=== PATIENT | male | born 1965 | race Caucasian/White ===

== ENCOUNTER 2019-01-19 07:23 | Observation (INO) | payer OTHER ==
[~2019-01-19] VITALS: Ht 195.6 cm; Wt 140.6 kg
[~2019-01-19 07:23] MED LIST: ACETAMINOPHEN500 M1 PO; BENZONATATE100 MG PO; LEVAQUIN750 MG PO; PREDNISONE20 MG PO
--- NOTE | 2019-01-19 14:40 | NUR ---
REPORT CALL TO ME BY PATRICE JENSEN FROM THE ER. PT ARRIVED TO THE ROOM AT 1434. SAT ON 3L IS 94%. PT GETTING SETTLED IN AT THIS TIME.
--- NOTE | 2019-01-19 15:31 | NUR ---
PATIENT IN BED WATCHING TV. PATIENT'S DINNER ORDERED. CALL LIGHT WITHIN REACH. NO OTHER NEEDS AT THIS TIME
--- NOTE | 2019-01-19 15:54 | NUR ---
SAT WAS 94% AND O2 WAS DECREASED TO 2L VIA NC WITH HUMIDIFICATION. PT STATES HIS BREATHING FEELS OKAY AT THIS TIME. PT REMAINS ON PULSE OX.
--- NOTE | 2019-01-19 16:03 | NUR ---
SAT 92% AT THIS TIME ON 2L VIA NC.
--- NOTE | 2019-01-19 17:01 | NUR ---
PT DENIES CHEST TIGHTNESS OR SOB. SAT 93% ON 2L VIA NC. PT ENCOURAGED TO USE HIS IS WHICH HE IS DOING AT THIS TIME. PT HITTING 850 ON THE IS.
--- NOTE | 2019-01-19 17:24 | NUR ---
MED REC COMPLETE
--- NOTE | 2019-01-19 17:52 | NUR ---
Pt admitted to med/surg at 1434 this afternoon for influenza with hypoxia. He states that he has been sick at home since Friday. Sat on arrival to ER was 85% on RA with a HR of 115. Sat on 2l is now in the 90's and he now declines any chest tightness or SOB. Pt eating well and he denies pain. Pt given an IS and has been using it as directed. PT states he has no allergies and takes no home medications.
--- NOTE | 2019-01-19 18:15 | NUR ---
Pt states he has now coughed up a little sputum which I did not see. Pt's sat is now 95% on 2l via NC.
--- NOTE | 2019-01-19 18:36 | NUR ---
Pt walked to the BR with assist and his RR increased to 26 which decreased back down to his baseline within about a minute.
--- NOTE | 2019-01-19 19:16 | NUR ---
RECIEVED CHANGE OF SHIFT REPORT FROM CAMILA MAX. PATIENT ON DROPLET PRECAUTIONS. PATIENT RESTING AWAKE IN BED. WHITE BOARD UPDATED. 2L VIA NC, NO SIGNS OF RESPIRATORY DISTRESS. CPOX WNL. CALL LIGHT WITHIN REACH. NO MORE NEEDS AT THIS TIME.
--- NOTE | 2019-01-19 20:16 | EKG ---
[facility] [address] [facility] [place] [address] Signed Sinus tachycardia with fusion complexes Nonspecific ST abnormality Abnormal ECG When compared with ECG of 26-NOV-2016 11:42, fusion complexes are now present Confirmed by CHARMAINE OLIVARES MD ([id number]) on 01/19/2019 8:16:06 PM Electronically Signed By: CHARMAINE OLIVARES MD 01/19/192015 PATIENT NAME: MELECIO ALEXANDER Electrocardiogram DATE OF : 63 PHYSICIAN: CHARMAINE OLIVARES MD REPORT #: [id number] REPORT IS CONFIDENTIAL AND NOT TO BE RELEASED WITHOUT AUTHORIZATION
--- NOTE | 2019-01-19 21:46 | NUR ---
ASSESSMENT COMPLETE. PATIENT DENIES CHEST PAIN, SOB, OR DIFFICULTY BREATHING. 2L VIA NC, NO SIGNS OF RESPIRATORY DISTRESS. AUSCULTATED LUNG SOUNDS, DIMINISHED IN ALL BASES. PATIENT DEMONSTRATED UNDERSTANDING OF INCENTIVE SPIROMETER. THIS RN ENCOURAGED PO FLUIDS. WATER AT BEDSIDE. PATIENT BLEW NOSE AND SHOWED THIS RN CLEAR MUCUS THAT WAS PRODUCED. PATIENT REPORTS SORENESS "ALL OVER" AFTER EXPERIENCING COUGHING. PATIENT DENIES DIZZINESS WITH AMBULATION. CPOX WNL. CALL LIGHT WITHIN REACH. NO MORE NEEDS AT THIS TIME. DROPLET PRECAUTIONS.
--- NOTE | 2019-01-19 22:24 | NUR ---
NOTIFIED DR. OLIVARES OF PATIENT'S URINE OUTPUT OF [address] OLIVARES ORDERED 1L OF LR TO BE INFUSED OVER 3 HRS VIA TELEPHONE ORDER. CLARIFIED ORDER THROUGH READ BACK METHOD.
--- NOTE | 2019-01-19 22:55 | NUR ---
ROUNDED ON PATIENT TO ADMINISTER SCHEDULED IV FLUIDS PER JAN ORDER. LIGHTS IN ROOM TURNED OFF PER PATIENT REQUEST. CALL LIGHT WITHIN REACH. NO MORE NEEDS AT THIS TIME.
--- NOTE | 2019-01-19 23:31 | NUR ---
ROUNDED ON PATIENT RESTING IN BED WITH EYES CLOSED, RESPIRATORY RATE IS EVEN AND UNLABORED, CPOX WNL. CALL LIGHT WITHIN REACH.
--- NOTE | 2019-01-20 00:14 | NUR ---
ROUNDED ON PATIENT RESTING AWAKE IN BED. FRESH WATER BROUGHT TO PATIENT. PATIENT STATES HE WOULD LIKE SCHEDULED BREATHING TREATMENT, RESPIRATORY THERAPIST NOTIFIED. MICKEY SENL. CALL LIGHT WITHIN REACH. NO MORE NEEDS AT THIS TIME.
--- NOTE | 2019-01-20 01:56 | NUR ---
ASSESSMENT COMPLETE. PATIENT AMBULATED TO RESTROOM SBA, PATIENT DENIES DIZZINESS WITH AMBULATION. PATIENT EXHIBITIED A NON PRODUCTIVE COUGH. PATIENT VOIDED LIGHT YELLOW URINE. SCHEDULED MEDICATIONS ADMINISTERED PER JAN ORDER. IV FLUIDS STILL INFUSING PER JAN ORDER. PATIENT DENIES CHEST PAIN, SOB, OR DIFFICULTY BREATHING, 2L VIA NC, CPOX WNL. WARM BLANKET PROVIDED PER PATIENT REQUEST. DIMINISHED LUNG SOUND IN ALL LOBES, INCENTIVE SPIROMETER AT BEDSIDE. CALL LIGHT WITHIN REACH. NO MORE NEEDS AT THIS TIME.
--- NOTE | 2019-01-20 02:25 | NUR ---
BERKLEY JENSEN SALINE LOCKED PATIENT IV FLUIDS PER MAR ORDER ARE FINISHED INFUSING.
--- NOTE | 2019-01-20 04:00 | NUR ---
THIS RN TITRATED OXYGEN FROM 2.5L TO 1.5L. CPOX, WNL. NO SIGNS OF RESPIRATORY DISTRESS. RESPIRATORY RATE IS EVEN AND UNLABORED. CALL LIGHT WITHIN REACH.
--- NOTE | 2019-01-20 04:16 | NUR ---
ROUNDED ON PATIENT RESTING IN BED WITH EYES CLOSED, RESPIRATORY RATE IS EVEN AND UNLABORED. CPOX, WNL, O2 SATS: 93%. NO SIGN OF RESPIRATORY DISTRESS. CALL LIGHT WITHIN REACH.
--- NOTE | 2019-01-20 04:43 | NUR ---
THIS RN SBA PATIENT TO RESTROOM. PATIENT DENIES DIZZINESS, LIGHTHEADEDNESS, OR SOB WITH AMBULATION TO RESTROOM. PATIENT USED INCENTIVE SPIROMETER, PATIENT EXHIBITED NON PRODUCTIVE COUGH. CPOX, WNL. CALL LIGHT WITHIN REACH. NO MORE NEEDS AT THIS TIME.
--- NOTE | 2019-01-20 05:13 | NUR ---
PATIENT SLEPT ON AND OFF THROUGHTOUT THE NIGHT. LOW URINE OUTPUT AT BEGINNING OF SHIFT, X1 LITER OF FLUID PER ORDER PROVIDED, URINE OUTPUT HAS BEEN QS DURING REMAINING OF SHIFT. AFEBRILE THIS SHIFT. TITRATED O2 PER ORDER VIA NC. CPOX, WNL. REGULAR DIET. IS. SBA. DROPLET PRECAUTIONS. SCHEDULED NEBS PER ORDER.
--- NOTE | 2019-01-20 06:13 | NUR ---
ASSESSMENT COMPLETE. PRN PAIN MEDICATION PROVIDED FOR "8/10" "SHARP" PAIN IN LLQ ABOVE GROIN. PATIENT PRODUCED LIGHT BLACK[place]OD COLORED NASAL MUCUS. PATIENT EXPERIENCING NON PRODUCTIVE COUGH. PATIENT DENIES SOB, DIFFICULY BREATHING OR CHEST PAIN. IV ASSESSESD TO BE PATENT, WNL. THIS RN ENCOURAGED IS AND COUGH AND DEEP BREATHING, PATIENT EXPRESSED UNDERSTANDING. FRESH WATER PROVIDED TO PATIENT PER PATIENT REQUEST. VITALS ASSESSED AND RECORDED. INTAKE AND OUTPUT ASSESSED AND RECORDED. CALL LIGHT WITHIN REACH. NO MORE NEED AT THIS TIME. NO SIGNS OF RESPIRATORY DISTRESS. CPOX, WNL.
--- NOTE | 2019-01-20 07:44 | NUR ---
Pt awake, alert and oriented x3. Pt denies chest pain and sob. Oxygen sat level is 95% on 1.5l nc. Pt denies pain. Personal supplies and call light wihtin reach.
--- NOTE | 2019-01-20 09:06 | NUR ---
Oxygen decreased to 1l oxygen, sat level 95%.
--- NOTE | 2019-01-20 10:23 | NUR ---
PATIENT IS ON ROOM AIR, SATS ARE 94-95%
--- NOTE | 2019-01-20 10:39 | NUR ---
PATIENT IN BED WATCHING TV. FRESH WATER GIVEN. CALL LIGHT IN REACH. NO FURTHER NEEDS AT THIS TIME.
--- NOTE | 2019-01-20 10:50 | NUR ---
Pt is on ra, resp even and non labored. Pt's oxygen saturation level is 94%. Pt reports feeling well this am.
--- NOTE | 2019-01-20 11:22 | NUR ---
PATIENT UP TO AMBULATE ON ROOM AIR. PATIENT HAS OXYGEN SATS OF 91 TO 93% ON ROOM AIR WHILE AMBULATING. PATIENT IS 96% ON ROOM AIR AT REST WHEN HE RETURNED TO HIS ROOM.
[2019-01-20] MEDS ORDERED: TAMIFLU75 MG PO (13:53)
[2019-01-20] MEDS ORDERED: ALBUTEROL2.5 MG/3 M INH (13:54)
--- NOTE | 2019-01-20 14:46 | NUR ---
IV TAKEN OUT BY THIS PIANO PLAYER UPON RN REQUEST. CATH INTACT. RN NOTIFIED.
== END 2019-01-20 15:10 | disposition home or self-care (01) ==
LOC: ED 07:23 → MS 07:24
PROVIDERS: ADMIT Internal Medicine
DX: J10.01 Influenza due to other identified influenza virus with the same other identified influenza virus pneumonia (principal); J98.01 Acute bronchospasm; J96.01 Acute respiratory failure with hypoxia; Z77.22 Contact with and (suspected) exposure to environmental tobacco smoke (acute) (chronic)
CPT/HCPCS: 36415; 71045; 71260; 80048; 84484; 85025; 85379; 87502; 93005; 93010; 94640; 94762; 96361; 96374; 99285-25; G0378; J1100; J7030; J7120; Q9967